=== PATIENT | male | born 1990 | race Caucasian/White ===

== ENCOUNTER 2020-10-18 17:43 | Emergency (ER) | payer OTHER ==
[~2020-10-18 17:43] MED LIST: LORTAB 5-325 M1 EACH PO; ZOFRAN4 MG PO; ZYRTEC10 MG PO
== END 2020-10-18 19:11 | disposition left against medical advice (07) ==
LOC: ER1 17:43
DX: Z53.21 Procedure and treatment not carried out due to patient leaving prior to being seen by health care provider (principal)

== ENCOUNTER 2020-12-14 12:18 | Emergency (ER) | payer OTHER ==
[2020-12-14] MEDS ORDERED: CYCLOBENZAPRINE10 MG PO (13:38)
[2020-12-14] MEDS ORDERED: IBUPROFEN600 MG PO (13:38)
== END 2020-12-14 14:10 | disposition home or self-care (01) ==
LOC: ER1 12:18
DX: M54.2 Cervicalgia (principal); Z90.89 Acquired absence of other organs
CPT/HCPCS: 96372; 99283; J1100; J1885

== ENCOUNTER → 2021-08-11 | Outpatient (CLI) | payer OTHER ==
[~2021-08-11] MED LIST changes: +CYCLOBENZAPRINE10 MG PO; +IBUPROFEN600 MG PO
== END ==
LOC: RAD 09:20
DX: M54.50 Low back pain, unspecified (principal); M41.9 Scoliosis, unspecified; M47.814 Spondylosis without myelopathy or radiculopathy, thoracic region
CPT/HCPCS: 72040; 72072; 72100; 72220

== ENCOUNTER 2021-09-02 12:42 | Emergency (ER) | payer SELFPAY | END 2021-09-02 19:43 | disposition home or self-care (01) | LOC: ER1 12:42 | DX: S01.112A Laceration without foreign body of left eyelid and periocular area, initial encounter (principal); M40.204 Unspecified kyphosis, thoracic region; Z90.89 Acquired absence of other organs; W01.10XA Fall on same level from slipping, tripping and stumbling with subsequent striking against unspecified object, initial encounter; Y99.0 Civilian activity done for income or pay; Z87.891 Personal history of nicotine dependence | CPT/HCPCS: 99283 ==